=== PATIENT | female | born 1960 | race Caucasian/White ===

== ENCOUNTER → 2017-12-13 | Emergency (ER) | payer OTHER ==
[~2017-12-13] VITALS: Ht 157.5 cm; Wt 77.1 kg
[~2017-12-13] MED LIST: ASPIRIN1 GM; ATENOLOL25 GM; CATAFLAM50 MG; CLARITIN10 MG; DAFLONEX-XL TA1 EACH; ECOTRIN325 M1; IBUPROFEN800 MG PO; INTESTINEX680 MG PO; KETO10TA2 PO; LEVAQUIN750 MG PO; NEURONTIN300 MG; NORFLEX100MG PO; ORPH100T PO; SINGULAIR4 MG; SMZ-TMP DS 800-1 TAB PO; TESSALON200 MG PO; TUSSI PRES-B L120 M1 PO; XOPENEX0.63 MG/3 IH; ZITHROMAX TRI-500 MG PO
== END | disposition home or self-care (01) ==
LOC: ER 09:51
DX: M25.562 Pain in left knee (principal)

== ENCOUNTER 2017-12-16 09:10 | Outpatient (CLI) | payer OTHER | END 2017-12-16 09:26 | disposition home or self-care (01) | LOC: MRI 09:10 | DX: M25.562 Pain in left knee (principal) | CPT/HCPCS: 73721 ==

== ENCOUNTER 2018-05-26 09:05 | Emergency (ER) | payer OTHER ==
[~2018-05-26] VITALS: Ht 157.5 cm; Wt 79.4 kg
[2018-05-26] MEDS ORDERED: XANAX0.25 MG (09:45)
[2018-05-26] MEDS ORDERED: MUPIROCIN22 GM TOP (11:08)
[2018-05-26] MEDS ORDERED: AMOX1TAB5 PO (11:08)
== END 2018-05-26 11:14 | disposition home or self-care (01) ==
LOC: ER 09:05
DX: S90.812A Abrasion, left foot, initial encounter (principal); S90.811A Abrasion, right foot, initial encounter; W45.8XXA Other foreign body or object entering through skin, initial encounter; Y93.01 Activity, walking, marching and hiking; Y92.89 Other specified places as the place of occurrence of the external cause; Y99.8 Other external cause status

== ENCOUNTER → 2018-08-21 | Emergency (ER) | payer OTHER ==
[~2018-08-21] VITALS: Ht 154.9 cm; Wt 77.1 kg
[~2018-08-21] MED LIST changes: +AMOX1TAB5 PO; +MUPIROCIN22 GM TOP; +XANAX0.25 MG
== END | disposition home or self-care (01) ==
LOC: ER 09:53
DX: M94.0 Chondrocostal junction syndrome [Tietze] (principal); R07.89 Other chest pain

== ENCOUNTER 2018-10-01 11:54 | Outpatient (CLI) | payer OTHER | END 2018-10-01 15:25 | disposition home or self-care (01) | LOC: RAD 11:54 → MAMO-SONO 10-02 07:45 | DX: M54.2 Cervicalgia (principal); M25.361 Other instability, right knee; M25.562 Pain in left knee ==

== ENCOUNTER 2018-10-06 09:21 | Outpatient (CLI) | payer OTHER | END 2018-10-06 09:38 | disposition home or self-care (01) | LOC: NUCLEAR 09:21 | DX: I87.2 Venous insufficiency (chronic) (peripheral) (principal); I73.9 Peripheral vascular disease, unspecified ==

== ENCOUNTER 2018-10-06 11:24 | Outpatient (CLI) | payer OTHER | END 2018-10-06 17:00 | disposition home or self-care (01) | LOC: MAMO-SONO 11:24 | DX: Z12.31 Encounter for screening mammogram for malignant neoplasm of breast (principal); Z87.898 Personal history of other specified conditions; Z12.39 Encounter for other screening for malignant neoplasm of breast; N64.89 Other specified disorders of breast ==

== ENCOUNTER 2018-10-07 09:25 | Outpatient (CLI) | payer OTHER | END 2018-10-07 09:38 | disposition home or self-care (01) | LOC: NUCLEAR 09:25 | DX: I87.2 Venous insufficiency (chronic) (peripheral) (principal); I73.9 Peripheral vascular disease, unspecified ==

== ENCOUNTER 2019-01-30 11:53 | Emergency (ER) | payer OTHER ==
[~2019-01-30] VITALS: Ht 154.9 cm; Wt 81.2 kg
[2019-01-30] MEDS ORDERED: MEDROLPACK PO (14:14)
[2019-01-30] MEDS ORDERED: valium PO (14:14)
[2019-01-30] MEDS ORDERED: IBUPROFEN800 MG PO (14:14)
== END 2019-01-30 14:38 | disposition home or self-care (01) ==
LOC: ER 11:53
DX: M54.32 Sciatica, left side (principal); M54.31 Sciatica, right side; M54.16 Radiculopathy, lumbar region

== ENCOUNTER 2019-03-05 14:19 | Emergency (ER) | payer OTHER ==
[~2019-03-05] VITALS: Ht 154.9 cm; Wt 77.1 kg
[~2019-03-05 14:19] MED LIST changes: +MEDROLPACK PO; +valium PO
== END 2019-03-05 15:51 | disposition home or self-care (01) ==
LOC: ER 14:19
DX: M62.830 Muscle spasm of back (principal); M54.32 Sciatica, left side; M54.31 Sciatica, right side

== ENCOUNTER 2019-05-13 14:08 | Emergency (ER) | payer OTHER ==
[~2019-05-13] VITALS: Ht 154.9 cm; Wt 76.7 kg
== END 2019-05-13 19:24 | disposition home or self-care (01) ==
LOC: ER 14:08
DX: M54.5 Low back pain (principal); R53.81 Other malaise

== ENCOUNTER 2019-12-26 14:32 | Emergency (ER) | payer OTHER ==
[~2019-12-26] VITALS: Ht 154.9 cm; Wt 74.8 kg
[2019-12-26] MEDS ORDERED: DIAZEPAM10 MG PO (15:18)
== END 2019-12-26 21:12 | disposition home or self-care (01) ==
LOC: ER 14:32
DX: N39.0 Urinary tract infection, site not specified (principal); N28.1 Cyst of kidney, acquired; R07.89 Other chest pain

== ENCOUNTER 2020-06-27 12:59 | Emergency (ER) | payer OTHER ==
[~2020-06-27] VITALS: Ht 157.5 cm; Wt 68.0 kg
[~2020-06-27 12:59] MED LIST changes: +DIAZEPAM10 MG PO
[2020-06-27] MEDS ORDERED: DEXILANT60 MG PO (13:26)
[2020-06-27] MEDS ORDERED: MONTELUKAST SOD10 MG PO (13:26)
[2020-06-27] MEDS ORDERED: JANUMET 50-5001 EACH PO (13:26)
[2020-06-27] MEDS ORDERED: GABAPENTIN800 M1 PO (13:26)
[2020-06-27] MEDS ORDERED: ALPRAZOLAM2 MG PO (13:27)
[2020-06-27] MEDS ORDERED: B-100 COMPLEX100 MG PO (13:27)
[2020-06-27] MEDS ORDERED: LEVALBUTEROL TA15 GM IH (13:27)
[2020-06-27] MEDS ORDERED: HYDROCHLOROTH12.5 MG PO (13:27)
[2020-06-27] MEDS ORDERED: FLONASE16 GM NS (13:27)
[2020-06-27] MEDS ORDERED: BAYER THERAPY325 MG PO (13:28)
[2020-06-27] MEDS ORDERED: ATENOLOL25 MG PO (13:28)
[2020-06-27] MEDS ORDERED: FOLIC ACID1 MG PO (13:28)
[2020-06-27] MEDS ORDERED: LEVOCETIRIZINE D5 MG PO (13:28)
[2020-06-27] MEDS ORDERED: INTESTINEX680 M1 PO (20:08)
[2020-06-27] MEDS ORDERED: PEPCID AC20 MG PO (20:08)
[2020-06-27] MEDS ORDERED: DOXYCYCLINE HY100 MG PO (20:08)
[2020-06-27] MEDS ORDERED: SYMBICORT 16010.2 GM IH (20:08)
[2020-06-27] MEDS ORDERED: CORTISPORIN EAR10 M1 OPHT (20:20)
[2020-06-27] MEDS ORDERED: CENTANY30 GM TOP (20:20)
== END 2020-06-27 20:36 | disposition home or self-care (01) ==
LOC: ER 12:59
DX: E10.621 Type 1 diabetes mellitus with foot ulcer (principal); L97.528 Non-pressure chronic ulcer of other part of left foot with other specified severity; U07.1 COVID-19; B95.61 Methicillin susceptible Staphylococcus aureus infection as the cause of diseases classified elsewhere

== ENCOUNTER 2021-03-21 08:13 | Outpatient (CLI) | payer OTHER ==
[~2021-03-21 08:13] MED LIST changes: +ALPRAZOLAM2 MG PO; +ATENOLOL25 MG PO; +B-100 COMPLEX100 MG PO; +BAYER THERAPY325 MG PO; +CENTANY30 GM TOP; +CORTISPORIN EAR10 M1 OPHT; +DEXILANT60 MG PO; +DOXYCYCLINE HY100 MG PO; +FLONASE16 GM NS; +FOLIC ACID1 MG PO; +GABAPENTIN800 M1 PO; +HYDROCHLOROTH12.5 MG PO; +INTESTINEX680 M1 PO; +JANUMET 50-5001 EACH PO; +LEVALBUTEROL TA15 GM IH; +LEVOCETIRIZINE D5 MG PO; +MONTELUKAST SOD10 MG PO; +PEPCID AC20 MG PO; +SYMBICORT 16010.2 GM IH
== END 2021-03-21 08:29 | disposition home or self-care (01) ==
LOC: MAMO-SONO 08:13
DX: Z12.31 Encounter for screening mammogram for malignant neoplasm of breast (principal); Z87.898 Personal history of other specified conditions; N64.4 Mastodynia; M17.0 Bilateral primary osteoarthritis of knee

== ENCOUNTER 2021-03-21 13:55 | Outpatient (CLI) | payer OTHER | END 2021-03-21 13:57 | disposition home or self-care (01) | LOC: NUCLEAR 13:55 | DX: M81.0 Age-related osteoporosis without current pathological fracture (principal) ==

== ENCOUNTER 2021-10-03 06:04 | Emergency (ER) | payer OTHER ==
[~2021-10-03] VITALS: Ht 157.5 cm; Wt 69.9 kg
[2021-10-03] MEDS ORDERED: NAPROXEN375 MG PO (06:44)
[2021-10-03] MEDS ORDERED: MUPIROCIN22 GM TOP (06:44)
[2021-10-03] MEDS ORDERED: ALOE VERA237 ML TOP (06:44)
== END 2021-10-03 06:52 | disposition home or self-care (01) ==
LOC: ER 06:04
DX: T24.112A Burn of first degree of left thigh, initial encounter (principal); T25.112A Burn of first degree of left ankle, initial encounter; T25.121A Burn of first degree of right foot, initial encounter; X10.0XXA Contact with hot drinks, initial encounter; Y93.89 Activity, other specified; Y92.89 Other specified places as the place of occurrence of the external cause; Y99.8 Other external cause status

== ENCOUNTER 2021-10-03 07:31 | Outpatient (CLI) | payer OTHER ==
[~2021-10-03 07:31] MED LIST changes: +ALOE VERA237 ML TOP; +NAPROXEN375 MG PO
== END 2021-10-03 07:32 | disposition home or self-care (01) ==
LOC: NUCLEAR 07:31
PROVIDERS: ATTEND Internal Medicine Cardiovascular Disease
DX: I82.493 Acute embolism and thrombosis of other specified deep vein of lower extremity, bilateral (principal); I87.2 Venous insufficiency (chronic) (peripheral)

== ENCOUNTER 2023-04-10 14:01 | Outpatient (CLI) | payer OTHER | END 2023-04-10 14:09 | disposition home or self-care (01) | LOC: MAMO-SONO 14:01 | DX: Z12.31 Encounter for screening mammogram for malignant neoplasm of breast (principal); Z12.39 Encounter for other screening for malignant neoplasm of breast ==

== ENCOUNTER 2024-12-31 11:53 | Outpatient (CLI) | payer OTHER | END 2024-12-31 12:03 | disposition home or self-care (01) | LOC: MAMO-SONO 11:53 | DX: N64.4 Mastodynia (principal); Z12.31 Encounter for screening mammogram for malignant neoplasm of breast; Z12.39 Encounter for other screening for malignant neoplasm of breast ==